=== PATIENT | male | born 1940 | race Hispanic/Latino ===

== ENCOUNTER 2017-06-30 05:53 | Day surgery (SDC) | payer MEDICARE ==
[2017-06-28 12:05] VITALS: BP 142/79
[2017-06-28 12:40] LABS: BASOPHILS % (AUTO) 0.5 % (0.0-5.0); EOSINOPHILS % (AUTO) 1.8 % (0.0-8.0); HEMATOCRIT 40.9 % (42-54); LYMPHOCYTES % (AUTO) 31.4 % (21.0-51.0); MEAN CORPUSCULAR HEMOGLOBIN 26.1 pg (27.0-33.0); MEAN CORPUSCULAR HGB CONC 32.8 g/dL (32.0-36.0); MEAN CORPUSCULAR VOLUME 79.6 fL (79-99); MONOCYTES % (AUTO) 9.8 % (3.0-13.0); NEUTROPHILS % (AUTO) 56.5 % (40.0-77.0); PLATELET COUNT (AUTO) 209 K/uL (130-400); RED BLOOD CELL COUNT(AUTO) 5.14 MIL/uL (4.50-6.20); RED CELL DISTRIBUTION WIDTH 15.3 % (11.0-15.5); WHITE BLOOD COUNT (AUTO) 6.4 K/uL (4.8-10.8)
[2017-06-28 12:48] LABS: POTASSIUM 3.8 mmol/L (3.5-5.1)
[2017-06-28 12:49] LABS: INR 1.06 (0.85-1.15); PARTIAL THROMBOPLASTIN TIME 29.5 SEC (26.3-35.5); PROTHROMBIN TIME 11.1 SEC (9.6-11.6)
[~2017-06-30] VITALS: Ht 167.6 cm; Wt 82.6 kg
[2017-06-30] VITALS (9 sets, daily range): BP systolic 113–132; BP diastolic 68–76
[~2017-06-30 05:53] MED LIST: CEPH500C2 PO; FURO20TA4 PO; MULT-1203 PO
[2017-06-30] MEDS ORDERED: SODIUM CHLORIDE 0.9% 1000ML 1,000 ML IV ONE (06:36)
[2017-06-30] MEDS ORDERED: CEFAZOLIN 1GM / D5W 50ML 100 ML ONE (07:15)
[2017-06-30] MEDS ORDERED: MIDAZOLAM HCL 1 MG/ML 2ML VIAL ONE ×2 (07:15→08:02)
[2017-06-30] MEDS ORDERED: BUPIVACAINE/PF 0.25% 30ML VIAL IJ ONE (07:15)
[2017-06-30] MEDS ORDERED: MEPERIDINE-PF 25 MG/ML SYG ONE ×2 (07:16→08:02)
[2017-06-30] MEDS ORDERED: LIDOCAINE HCL 1% MDV 50ML VIAL ONE (07:16)
[2017-06-30] MEDS ORDERED: ACETAMINOPHEN 325 MG TAB PO PRN (09:00)
[2017-06-30] MEDS ORDERED: ACETAMINOPHEN-CODEINE 300/30MG TAB PO PRN ×2 (09:00)
[2017-06-30] MEDS ORDERED: CARV3.12 PO ×2 (09:29→11:14)
[2017-06-30] MEDS ORDERED: ASPI-1197 PO ×2 (09:29→11:14)
[2017-06-30] MEDS ORDERED: CARVEDILOL 3.125 MG TABLET PO SCH (09:30)
[2017-06-30] MEDS ORDERED: ASPIRIN 81 MG EC TAB PO SCH (09:30)
== END 2017-06-30 12:10 | disposition home or self-care (01) ==
LOC: DAH 05:53
PROVIDERS: ATTEND Internal Medicine Cardiovascular Disease
DX: Z45.010 Encounter for checking and testing of cardiac pacemaker pulse generator [battery] (principal); I25.5 Ischemic cardiomyopathy; I25.10 Atherosclerotic heart disease of native coronary artery without angina pectoris; Z95.1 Presence of aortocoronary bypass graft
CPT/HCPCS: 33228; 36415; 80048; 85025; 85610; 85730; 99156; 99157; A4606; C1785; J0690; J2175 ×2; J2250 ×2; J3490 ×2; J7030; 99152; 99153

== ENCOUNTER 2017-08-26 21:50 | Inpatient (IN) | payer MEDICARE ==
[~2017-08-26] VITALS: Ht 170.2 cm; Wt 85.2 kg
[~2017-08-26 21:50] MED LIST changes: +ASPI-1197 PO; +CARV3.12 PO; -CEPH500C2 PO
[2017-08-26] MEDS ORDERED: AMIODARONE HCL 900MG/18ML IV ONE (22:19)
[2017-08-26 22:33] LABS: BASOPHILS % (AUTO) 0.6 % (0.0-5.0); EOSINOPHILS % (AUTO) 1.2 % (0.0-8.0); HEMATOCRIT 38.9 % (42-54); LYMPHOCYTES % (AUTO) 28.6 % (21.0-51.0); MEAN CORPUSCULAR HEMOGLOBIN 26.1 pg (27.0-33.0); MEAN CORPUSCULAR HGB CONC 33.5 g/dL (32.0-36.0); MEAN CORPUSCULAR VOLUME 77.9 fL (79-99); NEUTROPHILS % (AUTO) 61.6 % (40.0-77.0); PLATELET COUNT (AUTO) 236 K/uL (130-400); RED CELL DISTRIBUTION WIDTH 17.5 % (11.0-15.5)
[2017-08-26 22:50] LABS: CREATININE 1.2 mg/dL (0.5-1.5); POTASSIUM 3.3 mmol/L (3.5-5.1)
[2017-08-26 22:51] LABS: INR 1.15 (0.85-1.15); PARTIAL THROMBOPLASTIN TIME 29.2 SEC (26.3-35.5)
[2017-08-26 22:55] LABS: B-TYPE NATRIURETIC PEPTIDE 653 pg/mL (0-100)
[2017-08-26] MEDS ORDERED: POTASSIUM BICARB/CIT AC 25 MEQ TABLET.EFF ONE (23:24)
[2017-08-26 23:27] LABS: ALBUMIN 3.6 g/dL (3.5-5.0); BILIRUBIN,TOTAL 0.6 mg/dL (0.2-1.0); CREATINE KINASE MB 0.9 ng/mL (0.5-3.6); TOTAL PROTEIN, SERUM 7.6 g/dL (6.0-8.3)
[2017-08-26] MEDS ORDERED: ONDANSETRON HCL 4 MG/2 ML VIAL ONE (23:52)
[2017-08-27] VITALS (7 sets, daily range): BP systolic 118–156; BP diastolic 75–95
[2017-08-27 01:24] LABS: APPEARANCE,URINE Clear (CLEAR); BILIRUBIN,URINE Negative (NEGATIVE); COLOR,URINE Dark Yellow (YELLOW); GLUCOSE, URINE (UA) Negative (NEGATIVE); KETONES,URINE Trace mg/dL (NEGATIVE); LEUKOCYTE ESTERASE ,URINE Negative (NEGATIVE); NITRATE,URINE Negative (NEGATIVE); OCCULT BLOOD,URINE Negative (NEGATIVE); PROTEIN,URINE POS 2+ (NEGATIVE)
[2017-08-27] MEDS ORDERED: SODIUM CHLORIDE 0.9% 10 ML VIAL IVP PRN (01:30)
[2017-08-27] MEDS ORDERED: POTASSIUM BICARB/CIT AC 25 MEQ TABLET.EFF ONE (01:50)
[2017-08-27 01:57] LABS: BACTERIA,URINE Few /HPF (None Seen); MUCUS,URINE Many LPF (None Seen); RBC,URINE 0-1 /HPF (0-1); SQUAMOUS EPITHELIAL CELL,UR Moderate /LPF (0-2); WBC,URINE 0-1 /HPF (0-1)
[2017-08-27] MEDS ORDERED: SODIUM CHLORIDE 0.9% 250 ML IV ONE (02:57)
[2017-08-27] MEDS ORDERED: POTASSIUM CHLORIDE 20MEQ/100ML 100 ML IV PRN (03:00)
[2017-08-27] MEDS ORDERED: POTASSIUM CHLORIDE 20 MEQ ERTAB PO PRN (03:00)
[2017-08-27] MEDS ORDERED: POTASSIUM CHLORIDE 10% ELIXIR 20 MEQ/15 ML UDCUP PO PRN (03:00)
[2017-08-27] MEDS ORDERED: LIDOCAINE HCL-MPF 1% 2ML VIAL IVP PRN (03:00)
[2017-08-27] MEDS ORDERED: POTASSIUM CHLORIDE 10 MEQ/TAB.SA PO ONE ×4 (03:38→05:16)
[2017-08-27 05:48] LABS: CREATINE KINASE MB 0.6 ng/mL (0.5-3.6); TROPONIN I 0.18 ng/mL (0.00-0.06)
[2017-08-27] MEDS: SODIUM CHLORIDE 0.9% 10 ML VIAL IVP SCH ×2 (06:07→15:03)
[2017-08-27] MEDS: FUROSEMIDE 10 MG/ML 2ML VIAL IVP SCH ×3 (09:49→20:58)
[2017-08-27] MEDS: POTASSIUM CHLORIDE 20 MEQ ERTAB PO SCH ×2 (09:51→20:58)
[2017-08-27 11:25] LABS: CREATINE KINASE MB 0.5 ng/mL (0.5-3.6); TROPONIN I 0.17 ng/mL (0.00-0.06)
[2017-08-27] MEDS: METOPROLOL TARTRATE 25 MG TAB PO SCH ×2 (15:02→20:27)
[2017-08-27] MEDS: SPIRONOLACTONE 25 MG TAB PO SCH (15:02)
[2017-08-27] MEDS ORDERED: MAG HYDROX/AL HYDROX/SIMETH ES 30 ML SUSP UDCUP PO PRN (18:45)
[2017-08-27] MEDS ORDERED: BENZ-51 PO (21:10)
[2017-08-27] MEDS ORDERED: FURO40TA5 PO (21:10)
[2017-08-28 03:44] VITALS: BP 122/76
[2017-08-28] MEDS: SODIUM CHLORIDE 0.9% 10 ML VIAL IVP SCH ×4 (03:51→22:00)
[2017-08-28 04:00] LABS: CREATININE 1.6 mg/dL (0.5-1.5); POTASSIUM 4.7 mmol/L (3.5-5.1)
[2017-08-28] MEDS ORDERED: BENZONATATE 100 MG CAPSULE PO PRN (06:30)
[2017-08-28 07:00] VITALS: BP 125/81
[2017-08-28] MEDS: FUROSEMIDE 10 MG/ML 2ML VIAL IVP SCH ×2 (09:26→13:32)
[2017-08-28] MEDS: SPIRONOLACTONE 25 MG TAB PO SCH ×2 (09:26→20:59)
[2017-08-28] MEDS: POTASSIUM CHLORIDE 20 MEQ ERTAB PO SCH (09:26)
[2017-08-28] MEDS: METOPROLOL TARTRATE 25 MG TAB PO SCH ×2 (09:26→20:59)
[2017-08-28 11:00] VITALS: BP 120/81
[2017-08-28] MEDS ORDERED: LACTULOSE 20 GM/30 ML UDCUP PO PRN (13:00)
[2017-08-28 16:00] VITALS: BP 132/84
[2017-08-28 19:32] VITALS: BP 133/88
[2017-08-28 23:15] VITALS: BP 118/69
[2017-08-29 03:49] VITALS: BP_SYST 126; BP_DIAS 58; BP_DIAS 85
[2017-08-29] MEDS: SODIUM CHLORIDE 0.9% 10 ML VIAL IVP SCH (06:44)
[2017-08-29 07:00] VITALS: BP 130/90
[2017-08-29] MEDS: SPIRONOLACTONE 25 MG TAB PO SCH (08:59)
[2017-08-29] MEDS: METOPROLOL TARTRATE 25 MG TAB PO SCH (08:59)
[2017-08-29] MEDS ORDERED: FUROSEMIDE 40 MG TABLET PO SCH (09:00)
[2017-08-29 11:00] VITALS: BP 124/57
[2017-08-30] MEDS ORDERED: ASPIRIN 81 MG EC TAB PO SCH (09:00)
== END 2017-08-29 12:27 | disposition home or self-care (01) | DRG 291 ==
LOC: EDH 21:50 → EDHIP 08-27 00:35 → 2AH 08-27 02:41
PROVIDERS: ADMIT Family Medicine; ATTEND Family Medicine
DX: I13.0 Hypertensive heart and chronic kidney disease with heart failure and stage 1 through stage 4 chronic kidney disease, or unspecified chronic kidney disease (principal); I50.43 Acute on chronic combined systolic (congestive) and diastolic (congestive) heart failure; I47.2 Ventricular tachycardia; N17.9 Acute kidney failure, unspecified; I47.1 Supraventricular tachycardia; N18.3 Chronic kidney disease, stage 3 (moderate); I25.5 Ischemic cardiomyopathy; I49.5 Sick sinus syndrome; I49.9 Cardiac arrhythmia, unspecified; K59.00 Constipation, unspecified; E87.6 Hypokalemia; I25.10 Atherosclerotic heart disease of native coronary artery without angina pectoris; J40 Bronchitis, not specified as acute or chronic; Z95.0 Presence of cardiac pacemaker; Z88.8 Allergy status to other drugs, medicaments and biological substances; Z79.899 Other long term (current) drug therapy
CPT/HCPCS: 36415; 71045; 80048; 80053; 81001; 82550; 82553; 83735; 83874; 83880; 84132; 84484; 85025; 85610; 85730; 93005; 93306; 99291; J0282; J1940; J2405; J3480; J3490; J7030

== ENCOUNTER 2017-10-21 18:53 | Emergency (ER) | payer MEDICARE ==
[~2017-10-21 18:53] MED LIST changes: +BENZ-51 PO; -CARV3.12 PO; -FURO20TA4 PO; +FURO40TA5 PO
[2017-10-21 19:31] LABS: BASOPHILS % (AUTO) 0.5 % (0.0-5.0); EOSINOPHILS % (AUTO) 1.7 % (0.0-8.0); HEMATOCRIT 37.3 % (42-54); LYMPHOCYTES % (AUTO) 22.6 % (21.0-51.0); MEAN CORPUSCULAR HEMOGLOBIN 27.9 pg (27.0-33.0); MEAN CORPUSCULAR HGB CONC 34.7 g/dL (32.0-36.0); MEAN CORPUSCULAR VOLUME 80.4 fL (79-99); MONOCYTES % (AUTO) 8.7 % (3.0-13.0); NEUTROPHILS % (AUTO) 66.5 % (40.0-77.0); PLATELET COUNT (AUTO) 177 K/uL (130-400); RED BLOOD CELL COUNT(AUTO) 4.64 MIL/uL (4.50-6.20); RED CELL DISTRIBUTION WIDTH 17.5 % (11.0-15.5); WHITE BLOOD COUNT (AUTO) 8.3 K/uL (4.8-10.8)
[2017-10-21 19:33] LABS: RAPID GROUP A STREP NEGATIVE (NEGATIVE)
[2017-10-21 19:40] LABS: POTASSIUM 3.6 mmol/L (3.5-5.1)
[2017-10-21 19:45] LABS: ALBUMIN 3.5 g/dL (3.5-5.0); BILIRUBIN,TOTAL 0.6 mg/dL (0.2-1.0); TOTAL PROTEIN, SERUM 7.7 g/dL (6.0-8.3)
[2017-10-21] MEDS ORDERED: LEVOFLOXACIN 500 MG/D5W 100 ML 100 ML ONE (20:02)
== END 2017-10-21 20:23 | disposition home or self-care (01) ==
LOC: EDH 18:53
DX: J18.9 Pneumonia, unspecified organism (principal); J30.9 Allergic rhinitis, unspecified; I11.0 Hypertensive heart disease with heart failure; I50.9 Heart failure, unspecified; E78.5 Hyperlipidemia, unspecified; Z88.8 Allergy status to other drugs, medicaments and biological substances; Z87.891 Personal history of nicotine dependence
CPT/HCPCS: 36415; 71045; 80053; 83880; 85025; 87804 ×2; 87880; 93005; 96365; 99285; J1956